=== PATIENT | female | born 2000 | race Caucasian/White ===

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

== ENCOUNTER 2021-02-02 18:14 | Emergency (ER) | payer SELFPAY ==
[~2021-02-02] VITALS: Ht 160 cm; Wt 49.1 kg
[2021-02-02] MEDS ORDERED: LIDOcaine 5% patch TP STA (19:43)
[2021-02-02] MEDS ORDERED: ibuprofen tablet 400 MG TABLET PO ONE (19:45)
[2021-02-02] MEDS ORDERED: LIDO700A32 TOP (20:02)
[2021-02-02 20:14] VITALS: BP 108/65
== END 2021-02-02 20:16 | disposition home or self-care (01) ==
LOC: ER 18:15
DX: S13.4XXA Sprain of ligaments of cervical spine, initial encounter (principal); M54.2 Cervicalgia; Z79.899 Other long term (current) drug therapy; V87.7XXA Person injured in collision between other specified motor vehicles (traffic), initial encounter; Y93.89 Activity, other specified; Y92.89 Other specified places as the place of occurrence of the external cause; Y99.8 Other external cause status
CPT/HCPCS: 72040; 72070; 99284